=== PATIENT | female | born 1950 | race American Indian/Alaskan Native ===

== ENCOUNTER 2023-09-04 19:14 | Emergency (ER) | payer OTHER ==
[~2023-09-04] VITALS: Ht 157.5 cm; Wt 83.9 kg
[2023-09-04 19:30] VITALS: BP 132/74; PULSE 97; RESP 17; TEMP 97.7; O2SAT 96
[2023-09-04] MEDS ORDERED: GABA-636 PO (20:41)
[2023-09-04] MEDS ORDERED: PRED20TA5 PO (20:41)
[2023-09-04] MEDS ORDERED: HYD1C TP (20:41)
== END 2023-09-04 21:15 | disposition home or self-care (01) ==
LOC: MED 19:14
DX: Q80.9 Congenital ichthyosis, unspecified (principal); R20.2 Paresthesia of skin; Z79.899 Other long term (current) drug therapy
CPT/HCPCS: 99283

== ENCOUNTER 2023-09-20 04:20 | Emergency (ER) | payer OTHER ==
[~2023-09-20] VITALS: Ht 157.5 cm; Wt 83.5 kg
[~2023-09-20 04:20] MED LIST: GABA-636 PO; HYD1C TP; PRED20TA5 PO
[2023-09-20 04:25] VITALS: BP 155/83; PULSE 92; RESP 18; TEMP 97.3; O2SAT 95
[2023-09-20 04:40] VITALS: O2SAT 95
[2023-09-20] MEDS: METOCLOPRAMIDE 10 MG/2 ML INJ VIAL IVP ONE (05:24)
[2023-09-20] MEDS: ACETAMINOPHEN EXTRA STRENGTH 500 MG TAB PO ONE (05:29)
[2023-09-20] MEDS: LIDOCAINE 5% 1 EA PATCH TP ONE (05:30)
[2023-09-20] MEDS ORDERED: IBUP-2218 PO (06:43)
[2023-09-20] MEDS ORDERED: ACET-10509 PO (06:43)
[2023-09-20] MEDS ORDERED: DICL20GE TP (06:43)
[2023-09-20] MEDS ORDERED: CYCL-711 PO (06:43)
[2023-09-20 07:00] VITALS: BP 139/76; PULSE 75; RESP 16; O2SAT 96
== END 2023-09-20 07:00 | disposition home or self-care (01) ==
LOC: MED 04:20
DX: M54.2 Cervicalgia (principal); R51.9 Headache, unspecified; R03.0 Elevated blood-pressure reading, without diagnosis of hypertension; Z79.1 Long term (current) use of non-steroidal anti-inflammatories (NSAID); Z79.899 Other long term (current) drug therapy
CPT/HCPCS: 93005; 96374; 99283; J2765

== ENCOUNTER 2024-01-24 14:00 | Emergency (ER) | payer OTHER ==
[~2024-01-24] VITALS: Ht 160 cm; Wt 88.5 kg
[~2024-01-24 14:00] MED LIST changes: +ACET500T99 PO; +CYCL-711 PO; +DICL20GE TP; +DOCU-299 PO; +IBUP-2218 PO
[2024-01-24 14:09] VITALS: BP 146/61; PULSE 81; RESP 17; TEMP 97.8; O2SAT 96
[2024-01-24 15:03] LABS: BILIRUBIN,URINE 1+ (NEGATIVE); BLOOD, URINE NEGATIVE (NEGATIVE); COLOR,URINE YELLOW (YELLOW); LEUKOCYTE ESTERASE ,URINE 1+ (NEGATIVE); NITRITE, URINE NEGATIVE (NEGATIVE); PROTEIN,URINE 1+ (NEGATIVE); UGLUCOSE NEGATIVE (NEGATIVE); UROBILINOGEN,URINE 0.2 EU/dL (0.2 - 1)
[2024-01-24 15:05] LABS: APPEARANCE,URINE HAZY (CLEAR)
[2024-01-24 15:14] LABS: BACTERIA,URINE 4+ /HPF (None Seen); ICTOTEST NEGATIVE (NEGATIVE); MUCUS,URINE 3+ /LPF (None Seen); WBC,URINE 16-25 (MOD) /HPF (0-5)
[2024-01-24] MEDS ORDERED: IBUP-2213 PO (15:22)
[2024-01-24] MEDS ORDERED: DIPH25TA53 PO (15:22)
[2024-01-24] MEDS ORDERED: CIPR500T4 PO (15:22)
[2024-01-24] MEDS: KETOROLAC 60 MG/2 ML VIAL IM ONE (15:26)
[2024-01-24 15:51] VITALS: BP 126/76; PULSE 81; RESP 20; TEMP 98.4; O2SAT 97
== END 2024-01-24 15:51 | disposition home or self-care (01) ==
LOC: MED 14:00
DX: R51.9 Headache, unspecified (principal); N39.0 Urinary tract infection, site not specified; I10 Essential (primary) hypertension; Z90.49 Acquired absence of other specified parts of digestive tract; Z79.899 Other long term (current) drug therapy
CPT/HCPCS: 81001; 87086; 96372; 99283; J1885

== ENCOUNTER 2024-01-31 08:00 | Emergency (ER) | payer OTHER ==
[~2024-01-31] VITALS: Ht 160 cm; Wt 87.1 kg
[~2024-01-31 08:00] MED LIST changes: +CIPR500T4 PO; +DIPH25TA53 PO; +IBUP-2213 PO
[2024-01-31 08:06] VITALS: BP 127/101; PULSE 73; RESP 18; TEMP 97.1; O2SAT 96
--- NOTE | 2024-01-31 08:41 | NUR ---
73 Y/O F [facility] WITH HX OF HTN AND HLP; PTS C/O OF URINARY BURNING SENSATION WHEN SHE URINATES X 6 DAYS; PT DENIES N/V/D; SKIN IS PINK/WARM/DRY; AAOX4 WITH EVEN AND STEADY GAIT; LUNGS CLEAR BL; HR EVEN AND REGULAR; PT DENIES ANY FEVER, CP, SOB, OR COUGH AT THIS TIME; PATIENT STATES PAIN OF 10/10 AT THIS TIME; VSS; PATIENT POSITIONED FOR COMFORT; HOB ELEVATED; BEDRAILS UP X2; BED DOWN. CALL LIGHT WITH IN REACH; ER MD MADE AWARE OF PT STATUS. PMHX HTN HLP ALLERGIES NKA
[2024-01-31 08:53] LABS: APPEARANCE,URINE CLEAR (CLEAR); BILIRUBIN,URINE NEGATIVE (NEGATIVE); BLOOD, URINE NEGATIVE (NEGATIVE); COLOR,URINE YELLOW (YELLOW); LEUKOCYTE ESTERASE ,URINE 1+ (NEGATIVE); NITRITE, URINE NEGATIVE (NEGATIVE); PROTEIN,URINE NEGATIVE (NEGATIVE); UGLUCOSE NEGATIVE (NEGATIVE); UROBILINOGEN,URINE 0.2 EU/dL (0.2 - 1)
[2024-01-31 09:04] LABS: BACTERIA,URINE FEW /HPF (None Seen); RBC,URINE 0-5 /HPF (0-5); SQUAMOUS EPITHELIAL CELL,UR 4-10 (MOD) /LPF (0-3 (FEW))
[2024-01-31] MEDS: ONDANSETRON 4 MG/2 ML VIAL IVP ONE (09:28)
[2024-01-31 09:29] LABS: BASOPHILS % (AUTO) 0.4 % (0.0-2.0); EOSINOPHILS % (AUTO) 0.4 % (0.0-4.0); HEMATOCRIT 37.5 % (36-48); HEMOGLOBIN 12.4 g/dL (12.0-16.0); LYMPHOCYTES # (AUTO) 1.9 K/uL (2.5-16.5); LYMPHOCYTES % (AUTO) 20.7 % (20.5-51.1); MEAN CORPUSCULAR HEMOGLOBIN 30 pg (27-31); MEAN CORPUSCULAR HGB CONC 33 g/dL (33-37); MEAN CORPUSCULAR VOLUME 89.9 fL (80-94); MONOCYTES # (AUTO) 0.7 K/uL (0.8-1.0); MONOCYTES % (AUTO) 7.5 % (1.7-9.3); NEUTROPHILS # (AUTO) 6.5 K/uL (1.8-7.7); PLATELET COUNT (AUTO) 247 K/uL (140-450); RED BLOOD CELL COUNT(AUTO) 4.17 MIL/uL (4.20-5.40); WHITE BLOOD COUNT (AUTO) 9.2 K/uL (4.8-10.8)
[2024-01-31] MEDS: KETOROLAC 30 MG/ML VIAL IVP ONE (09:29)
--- NOTE | 2024-01-31 09:29 | NUR ---
Pt was medicated per providers orders.
[2024-01-31 09:44] LABS: ALANINE AMINOTRANSFERASE 37 U/L (12-78); ALBUMIN 3.8 g/dL (3.4-5.0); ALKALINE PHOSPHATASE 76 U/L (50-136); ANION GAP 14.1 (8-16); ASPARTATE AMINOTRANSFERASE 18 U/L (15-37); CARBON DIOXIDE 24.7 mmol/L (21-32); CHLORIDE 95 mmol/L (98-107); CREATININE 0.9 mg/dL (0.6-1.3); GLUCOSE 124 mg/dL (74-106); LIPASE 51 U/L (16-77); POTASSIUM 3.8 mmol/L (3.5-5.1); SODIUM SERUM 130 mmol/L (136-145); TOTAL BILIRUBIN 0.5 mg/dL (0.0-1.0); TOTAL PROTEIN, SERUM 7.2 g/dL (6.4-8.2); UREA NITROGEN, BLOOD 11 mg/dL (7-18)
[2024-01-31] MEDS ORDERED: MORPHINE SULFATE 4 MG/ML SYR ONE (09:54)
[2024-01-31] MEDS: MORPHINE SULFATE 4 MG/ML SYR IVP ONE (09:57)
--- NOTE | 2024-01-31 09:57 | NUR ---
Pt was medicated per providers orders.
[2024-01-31] MEDS: NACL 0.9% 1,000 ML IV ONE (10:38)
--- NOTE | 2024-01-31 10:38 | NUR ---
Pt was medicated per providers orders.
[2024-01-31] MEDS ORDERED: cefTRIAXone 1,000 MG VIAL ONE (10:39)
--- NOTE | 2024-01-31 10:47 | NUR ---
Pt was medicated per providers orders.
[2024-01-31] MEDS ORDERED: ACET500T99 PO (11:28)
[2024-01-31] MEDS ORDERED: CEPH-588 PO (11:28)
[2024-01-31 11:29] VITALS: BP 127/101; PULSE 73; RESP 18; TEMP 97.1; O2SAT 96
--- NOTE | 2024-01-31 11:37 | NUR ---
Patient discharged with v/s stable. Written and verbal after care instructions given and explained. Patient verbalized understanding. Ambulatory with steady gait. All questions addressed prior to discharge. Advised to follow up with PMD.
--- NOTE | 2024-01-31 12:11 | NUR ---
Chart checked and completed. The patient's care was reviewed and supervised by BLANCA MARTIN RN.
[2024-02-01] MEDS ORDERED: ONDA-188 PO (18:10)
[2024-02-01] MEDS ORDERED: FAMO-92 PO (18:10)
[2024-02-05] MEDS ORDERED: NITR100C7 PO (16:46)
== END 2024-01-31 11:37 | disposition home or self-care (01) ==
LOC: MED 08:00
DX: N39.0 Urinary tract infection, site not specified (principal); E86.0 Dehydration; I10 Essential (primary) hypertension; Z79.899 Other long term (current) drug therapy
CPT/HCPCS: 36415; 74177; 80053; 81001; 83690; 85025; 87086; 87186; 93005; 96365; 96375; 99285; J0696; J1885; J2270; J2405; J7030; Q9967

== ENCOUNTER 2024-02-01 15:20 | Emergency (ER) | payer OTHER ==
[~2024-02-01] VITALS: Ht 152.4 cm; Wt 87.1 kg
[~2024-02-01 15:20] MED LIST changes: +CEPH-588 PO
[2024-02-01 15:29] VITALS: BP 169/56; PULSE 88; RESP 18; TEMP 98.1; O2SAT 94
--- NOTE | 2024-02-01 16:00 | NUR ---
PATIENT PRESENTS TO ED WITH UTI SYMPTOMS . PT STATES THAT THEY HAVE BEEN FEELING WEAK AND ARE UNABLE TO AMBULATE SHE SAYS THAT SHE HAS PAIN WHEN SHE UIRANTES . DENIES N/V/; SKIN IS PINK/WARM/DRY; AAOX4 WITH UNEVEN AND UNSTEADY GAIT AMBULATES WITH A WALKER; LUNGS CLEAR BL; HR EVEN AND REGULAR; PT DENIES ANY FEVER, CP, SOB, OR COUGH AT THIS TIME; PATIENT STATES PAIN OF 0/10 AT THIS TIME; VSS; PATIENT POSITIONED FOR COMFORT; HOB ELEVATED; BEDRAILS UP X2; BED DOWN. ER MD MADE AWARE OF PT STATUS. CALL LIGHT WITHIN REACH NKA
[2024-02-01] MEDS: ONDANSETRON 4 MG ODT PO ONE (17:00)
[2024-02-01] MEDS: KETOROLAC 30 MG/ML VIAL IM ONE (17:00)
[2024-02-01] MEDS: PHENAZOPYRIDINE 100 MG TAB PO ONE (17:01)
[2024-02-01] MEDS ORDERED: ONDA-188 PO (18:10)
[2024-02-01] MEDS ORDERED: FAMO-92 PO (18:10)
[2024-02-01] MEDS: FAMOTIDINE 20 MG TAB PO ONE (18:24)
[2024-02-01] MEDS: ALUMINUM HYD/MAG/SIMETHICONE 30 ML UDC PO ONE (18:24)
--- NOTE | 2024-02-01 18:54 | NUR ---
Patient appears to be resting comfortably in bed. Vital Signs within normal limits. Respirations even and unlabored.
[2024-02-01 19:25] VITALS: O2SAT 96
--- NOTE | 2024-02-01 19:25 | NUR ---
73YR OLD FEMALE AOX4 BIB SELF WITH C/O ABD PAIN 03/09 X6DAYS - PT ALSO C/O ABD BLOATING, VOMITING, AND LOOSE STOOLS. PT'S ABDOMEN APPEARS DISTENDED. PT ENDORSES SHE WAS DAIGNOSED WITH A UTI YESTERDAY BUT HAS NOT STARTED HER PRESCRIBED MEDS YET. PT STATES PAIN HAS WORSENED TODAY. PT AMBULATORY WHILE USING WALKER. PT ON BEDSIDE MONITOR, CALL LIGHT WITHIN REACH. NKDA
--- NOTE | 2024-02-01 19:25 | NUR ---
CONTINUATION OF CARE -RECEIVED REPROT FROM MELY ENGLAND. PT AWAKE IN BED, ASSISTED PT OUT OF BED AND PT AMBULATED TO BATHROOM WITH WALKER. [facility]ED [facility].
[2024-02-01] MEDS: DICYCLOMINE 20 MG/2 ML VIAL IM ONE (20:08)
--- NOTE | 2024-02-01 20:28 | NUR ---
CALLED AND SPOKE TO DAUGHTER (DAVIDSON) - EXPLAINED PT TO BE DISCHARGED. DAUGHTER TO ARCH [employer] MACHINE OPERATOR PT AROUND [id number].
--- NOTE | 2024-02-01 20:50 | NUR ---
PT C/O PAIN 03/09, STATES NOW WORSE THAN BEFORE - INFORMED DR. EVANS. EITAN LEE WILL ORDER FULL WORK UP.
--- NOTE | 2024-02-01 21:00 | NUR ---
IV ESTABLISGED - 20G TO L AC, LABS DRAWN AND HANDED TO LAB.
--- NOTE | 2024-02-01 21:10 | NUR ---
URINE SAMPLE COLLECTED AND SENT TO LAB.
[2024-02-01 21:12] LABS: BASOPHILS % (AUTO) 0.2 % (0.0-2.0); EOSINOPHILS % (AUTO) 0.1 % (0.0-4.0); HEMOGLOBIN 12.1 g/dL (12.0-16.0); LYMPHOCYTES # (AUTO) 1.7 K/uL (2.5-16.5); LYMPHOCYTES % (AUTO) 16.4 % (20.5-51.1); MEAN CORPUSCULAR HEMOGLOBIN 30 pg (27-31); MEAN CORPUSCULAR HGB CONC 34 g/dL (33-37); MEAN CORPUSCULAR VOLUME 89.2 fL (80-94); MONOCYTES # (AUTO) 0.6 K/uL (0.8-1.0); NEUTROPHILS % (AUTO) 77.3 % (42.2-75.2); PLATELET COUNT (AUTO) 246 K/uL (140-450); RED BLOOD CELL COUNT(AUTO) 4.04 MIL/uL (4.20-5.40); RED CELL DISTRIBUTION WIDTH 13.6 % (11.6-13.7); WHITE BLOOD COUNT (AUTO) 10.4 K/uL (4.8-10.8)
[2024-02-01] MEDS: ONDANSETRON 4 MG/2 ML VIAL IVP ONE (21:25)
[2024-02-01] MEDS: MORPHINE SULFATE 4 MG/ML SYR IVP ONE (21:26)
[2024-02-01 21:36] LABS: ANION GAP 11.4 (8-16); CALCIUM 9.3 mg/dL (8.5-10.1); CARBON DIOXIDE 26.4 mmol/L (21-32); CHLORIDE 94 mmol/L (98-107); CREATININE 0.7 mg/dL (0.6-1.3); GLUCOSE 123 mg/dL (74-106); POTASSIUM 3.8 mmol/L (3.5-5.1); SODIUM SERUM 128 mmol/L (136-145); UREA NITROGEN, BLOOD 5 mg/dL (7-18)
--- NOTE | 2024-02-01 21:38 | NUR ---
PT'S DAUGHTER DAVIDSON AT BEDSIDE.
[2024-02-01 21:39] LABS: ALBUMIN 3.8 g/dL (3.4-5.0); BILIRUBIN,DIRECT 0.2 mg/dL (0.0-0.3); TOTAL BILIRUBIN 0.7 mg/dL (0.0-1.0); TOTAL PROTEIN, SERUM 7.2 g/dL (6.4-8.2)
[2024-02-01 21:41] LABS: BILIRUBIN,URINE 1+ (NEGATIVE); BLOOD, URINE NEGATIVE (NEGATIVE); LEUKOCYTE ESTERASE ,URINE TRACE (NEGATIVE); NITRITE, URINE POSITIVE (NEGATIVE); PROTEIN,URINE 2+ (NEGATIVE); UGLUCOSE 1+ (NEGATIVE); UROBILINOGEN,URINE >=8.0 EU/dL (0.2 - 1)
[2024-02-01 21:52] LABS: APPEARANCE,URINE HAZY (CLEAR); COLOR,URINE ORANGE (YELLOW); ICTOTEST POSITIVE (NEGATIVE)
[2024-02-01 21:53] LABS: BACTERIA,URINE 2+ /HPF (None Seen); MUCUS,URINE 2+ /LPF (None Seen); SQUAMOUS EPITHELIAL CELL,UR 4-10 (MOD) /LPF (0-3 (FEW))
--- NOTE | 2024-02-01 22:03 | NUR ---
PT BACK FROM CT.
[2024-02-01 22:05] VITALS: O2SAT 96
[2024-02-01] MEDS ORDERED: cefTRIAXone 1,000 MG VIAL ONE (22:49)
--- NOTE | 2024-02-02 01:27 | NUR ---
CALLED DAUGHTER DAVIDSON - LEFT A VOICEMAIL WITH CALLBACK INFO.
[2024-02-02 01:30] VITALS: O2SAT 96
--- NOTE | 2024-02-02 02:25 | NUR ---
PT AMBULATED TO BATHROOM AND BACK TO BED USING WALKER.
[2024-02-02 03:00] VITALS: BP 136/70; PULSE 70; RESP 14; O2SAT 96
[2024-02-02] MEDS ORDERED: PHEN-1877 PO (10:53)
[2024-02-05] MEDS ORDERED: NITR100C7 PO (16:46)
== END 2024-02-02 03:20 | disposition home or self-care (01) ==
LOC: MED 15:20
DX: N39.0 Urinary tract infection, site not specified (principal); K29.70 Gastritis, unspecified, without bleeding; E11.9 Type 2 diabetes mellitus without complications; I10 Essential (primary) hypertension; Z98.890 Other specified postprocedural states; Z79.899 Other long term (current) drug therapy
CPT/HCPCS: 36415; 74177; 80048; 80076; 81001; 83690; 85025; 87086; 96365; 96372; 96375; 99285; J0500; J0696; J1885; J2270; J2405; Q0162; Q9967; 87186

== ENCOUNTER 2024-02-02 09:44 | Emergency (ER) | payer OTHER ==
[~2024-02-02] VITALS: Ht 157.5 cm; Wt 86.2 kg
[~2024-02-02 09:44] MED LIST changes: +FAMO-92 PO; +ONDA-188 PO
[2024-02-02 09:58] VITALS: BP 175/95; PULSE 74; RESP 16; TEMP 97.9; O2SAT 97
[2024-02-02] MEDS ORDERED: PHEN-1877 PO (10:53)
[2024-02-02] MEDS: PHENAZOPYRIDINE 100 MG TAB PO ONE (11:03)
[2024-02-02] MEDS: ACETAMINOPHEN EXTRA STRENGTH 500 MG TAB PO ONE (11:06)
[2024-02-02 11:11] VITALS: BP 175/95; PULSE 74; RESP 16; TEMP 97.9; O2SAT 97
[2024-02-05] MEDS ORDERED: NITR100C7 PO (16:46)
== END 2024-02-02 11:11 | disposition home or self-care (01) ==
LOC: MED 09:44
DX: N39.0 Urinary tract infection, site not specified (principal); R10.2 Pelvic and perineal pain; R30.0 Dysuria; E11.9 Type 2 diabetes mellitus without complications; I10 Essential (primary) hypertension; Z86.73 Personal history of transient ischemic attack (TIA), and cerebral infarction without residual deficits; Z79.899 Other long term (current) drug therapy
CPT/HCPCS: 99283; 99284